=== PATIENT | female | born 1985 | race Hispanic/Latino ===

== ENCOUNTER 2016-09-24 08:32 | Emergency (ER) | payer OTHER ==
[~2016-09-24] VITALS: Ht 154.9 cm; Wt 75.0 kg
[2016-09-24] MEDS ORDERED: ASPI1TAB PO (08:47)
[2016-09-24] MEDS ORDERED: ADAL60TA PO (08:47)
[2016-09-24 09:27] LABS: BASO % 0.1 % (0.0-1.0); EOS % 0.1 % (0.0-3.0); LARGE UNSTAINED CELL # 0.2 K/mm3 (0.0-0.4); LARGE UNSTAINED CELL % 1.1 % (0.0-4.0); LYMPH % 7.1 % (24.0-44.0); MEAN CORPUSCULAR HEMOGLOBIN 29.7 pg (27.0-33.0); MEAN CORPUSCULAR HGB CONC 35.3 g/dl (32.0-36.5); MONO # 0.7 K/mm3 (0.0-0.8); MONO % 5.4 % (0.0-5.0); NEUTROPHILS # 11.8 K/mm3 (1.8-7.7); NEUTROPHILS % 86.3 % (36.0-66.0); PLATELET COUNT, AUTOMATED 208 k/mm3 (150-450); RED CELL DISTRIBUTION WIDTH 13.1 % (11.5-14.5); WHITE BLOOD COUNT 13.6 K/mm3 (4.0-10.0)
[2016-09-24] MEDS ORDERED: NS 1,000 ML IV ONE (09:30)
[2016-09-24 09:57] LABS: ALBUMIN 2.8 GM/DL (3.2-5.2); ALBUMIN/GLOBULIN RATIO 0.58 (1.00-1.93); ALKALINE PHOSPHATASE 76 U/L (45-117); ALT/SGPT 30 U/L (12-78); ANION GAP 10 MEQ/L (8-16); AST/SGOT 21 U/L (15-37); BILIRUBIN,DIRECT 0.4 MG/DL (0.0-0.2); BILIRUBIN,TOTAL 1.4 MG/DL (0.2-1.0); BLOOD UREA NITROGEN 5 MG/DL (7-18); CARBON DIOXIDE LEVEL 21 MEQ/L (21-32); CHLORIDE LEVEL 96 MEQ/L (98-107); CREATININE FOR GFR 0.61 MG/DL (0.55-1.02); GLOMERULAR FILTRATION RATE > 60.0 (>60); GLUCOSE, FASTING 207 MG/DL (70-105); SODIUM LEVEL 127 MEQ/L (136-145); TOTAL PROTEIN 7.6 GM/DL (6.4-8.2)
[2016-09-24] MEDS ORDERED: SODIUM CHLORIDE 0.9% 1000 ML IV ONE (13:15)
--- NOTE | 2016-09-24 13:42 | REP ---
RIGHT LOWER QUADRANT ULTRASOUND: Real-time sonographic evaluation of the right lower quadrant performed. The appendix could not be visualized. No free fluid or fluid collection is seen. The ovary is visualized and appears normal in size and echotexture measuring 3.4 x 2.1 x 2.6 cm. There is blood flow seen in the right ovary with duplex Doppler evaluation, with no torsion, RI 0.33. Living intrauterine twin gestation is noted, heart rate of fetus A 168 beats per minute and heart rate of fetus B 157 beats per minute. IMPRESSION: Appendix could not be visualized. No free fluid. Normal right ovary. Signed by Toribio Chowdary MD 09/24/2016 05:57 P
--- NOTE | 2016-09-24 16:17 | REP ---
MRI ABDOMEN WITHOUT CONTRAST: Multiple sequences are obtained throughout the abdomen to evaluate for possible appendicitis. Imaging is performed in the sagittal, coronal and axial planes. No IV contrast was administered. Twin gestation is seen within the uterus. Ovaries appear normal with no mass. The cecum is displaced superiorly into the subhepatic area near the gallbladder. There is no evidence of appendicitis. There is no definite inflammation seen of the gallbladder. There is no biliary dilatation. No free fluid is seen in the visualized abdomen or pelvis. I see no adenopathy or other significant finding. IMPRESSION: No evidence of appendicitis of free fluid. No acute abnormalities are seen. Signed by Toribio Chowdary MD 09/24/2016 05:59 P
[2016-09-24] MEDS ORDERED: POTASSIUM CHLORIDE 10 MEQ SR TABLET PO ONE (16:45)
[2016-09-24 16:49] VITALS: BP 118/63
[2016-09-24] MEDS ORDERED: ACETAMINOPHEN TAB 650MG DOSE (2X325MG) PO ONE (17:00)
[2016-09-24] MEDS ORDERED: PREN1TAB11 PO (23:02)
[2016-09-25] MEDS ORDERED: MACR100C43 PO ×2 (01:14→13:51)
[2016-09-25] MEDS ORDERED: NIFE30TA66 PO (14:23)
== END 2016-09-24 17:03 | disposition home or self-care (01) ==
LOC: M ED 08:32
DX: O26.892 Other specified pregnancy related conditions, second trimester (principal); R50.9 Fever, unspecified; R11.10 Vomiting, unspecified; Z3A.15 15 weeks gestation of pregnancy

== ENCOUNTER 2016-09-24 22:48 | Emergency (ER) | payer OTHER ==
[~2016-09-24] VITALS: Ht 165.1 cm; Wt 75.0 kg
[~2016-09-24 22:48] MED LIST: ADAL60TA PO; ASPI1TAB PO
[2016-09-24] MEDS ORDERED: PREN1TAB11 PO (23:02)
[2016-09-25] MEDS ORDERED: MACR100C43 PO ×2 (01:14→13:51)
[2016-09-25] MEDS ORDERED: NS 1,000 ML IV ONE (01:15)
[2016-09-25] MEDS ORDERED: NITROFURANTOIN (MACROBID) 100 MG CAP PO ONE (01:15)
[2016-09-25 01:19] VITALS: BP 143/84
[2016-09-25] MEDS ORDERED: NIFE30TA66 PO (14:23)
== END 2016-09-25 02:30 | disposition home or self-care (01) ==
LOC: M ED 22:48
DX: O23.42 Unspecified infection of urinary tract in pregnancy, second trimester (principal); Z3A.15 15 weeks gestation of pregnancy

== ENCOUNTER 2016-09-25 10:14 | Inpatient (IN) | payer OTHER ==
[~2016-09-25] VITALS: Ht 154.9 cm; Wt 70.5 kg
[~2016-09-25 10:14] MED LIST changes: +MACR100C43 PO; +PREN1TAB11 PO
[2016-09-25] MEDS ORDERED: NS 1,000 ML IV SCH (10:21)
[2016-09-25] MEDS ORDERED: cefTRIAXone SOD 2 GM in D5W MINI-BAG PLUS 50 ML IV ONE (10:30)
[2016-09-25] MEDS ORDERED: NS 1,000 ML IV ONE (10:30)
[2016-09-25] MEDS ORDERED: ONDANSETRON 4MG/2ML VIAL (J2405) IV ONE ×2 (10:45→13:30)
[2016-09-25 11:04] LABS: BASO % 0.1 % (0.0-1.0); EOS % 0.1 % (0.0-3.0); LARGE UNSTAINED CELL # 0.1 K/mm3 (0.0-0.4); LARGE UNSTAINED CELL % 0.6 % (0.0-4.0); LYMPH # 0.6 K/mm3 (1.5-6.5); LYMPH % 3.7 % (24.0-44.0); MEAN CORPUSCULAR HEMOGLOBIN 29.5 pg (27.0-33.0); MEAN CORPUSCULAR HGB CONC 34.4 g/dl (32.0-36.5); MEAN CORPUSCULAR VOLUME 85.9 fl (80.0-96.0); MONO # 0.3 K/mm3 (0.0-0.8); MONO % 2.5 % (0.0-5.0); NEUTROPHILS # 11.6 K/mm3 (1.8-7.7); NEUTROPHILS % 92.9 % (36.0-66.0); PLATELET COUNT, AUTOMATED 159 k/mm3 (150-450); RED CELL DISTRIBUTION WIDTH 13.4 % (11.5-14.5); WHITE BLOOD COUNT 12.5 K/mm3 (4.0-10.0)
[2016-09-25 11:20] LABS: ALBUMIN 2.4 GM/DL (3.2-5.2); ALBUMIN/GLOBULIN RATIO 0.49 (1.00-1.93); ALKALINE PHOSPHATASE 85 U/L (45-117); ALT/SGPT 26 U/L (12-78); ANION GAP 10 MEQ/L (8-16); AST/SGOT 19 U/L (15-37); BILIRUBIN,DIRECT 0.5 MG/DL (0.0-0.2); BILIRUBIN,TOTAL 1.4 MG/DL (0.2-1.0); BLOOD UREA NITROGEN 4 MG/DL (7-18); CALCIUM LEVEL 8.5 MG/DL (8.5-10.1); CARBON DIOXIDE LEVEL 23 MEQ/L (21-32); CHLORIDE LEVEL 105 MEQ/L (98-107); CREATININE FOR GFR 0.55 MG/DL (0.55-1.02); GLOMERULAR FILTRATION RATE > 60.0 (>60); GLUCOSE, FASTING 150 MG/DL (70-105); POTASSIUM SERUM 3.3 MEQ/L (3.5-5.1); SODIUM LEVEL 138 MEQ/L (136-145); TOTAL PROTEIN 7.3 GM/DL (6.4-8.2)
--- NOTE | 2016-09-25 12:35 | REP ---
RIGHT ABDOMINAL ULTRASOUND: Real-time sonographic evaluation of the right abdomen performed to evaluate the appendix. Correlation made with prior ultrasound and MRI performed 09/24/2016. Once again the cecum is displaced superiorly toward the right upper quadrant. The appendix appears to be visualized in this region of the abdomen measuring 5 mm with no sonographic evidence of appendicitis. There is no free fluid in this region as well. Gallbladder demonstrates no gallstones. There is no biliary dilatation with the common bile duct measuring 4 mm. In the right lower quadrant where the patient complains of most pain there are prominent uterine and pelvic veins present. The right ovary appears normal in size with no evidence of torsion with duplex Doppler evaluation. IMPRESSION: No sonographic evidence of appendicitis. Gallbladder and right ovary also appear normal. No free fluid is seen. Signed by Toribio Chowdary MD 09/25/2016 03:30 P
[2016-09-25] MEDS ORDERED: ACETAMINOPHEN 325 MG TAB PO SCH (13:00)
--- NOTE | 2016-09-25 13:04 | REP ---
TWIN OB ULTRASOUND: Real-time sonographic evaluation of intrauterine twin gestation is performed, estimated gestational age is 15 weeks 5 days, EDC 03/14/2017. Fetus A: BPD 30 mm = 15 weeks 3 days, 36th percentile HC 113 mm = 15 weeks 4 days, 41st percentile AC 105 mm = 16 weeks 3 days, 69th percentile Femur length 19 mm = 15 weeks 5 days, 47th percentile HC/AC ratio 1.08 slightly below normal range of 1.10 to 1.29. Estimated weight 142 grams at the 53rd percentile. No heart motion is detected for fetus A, compatible with intrauterine demise. Fetus B: BPD 30 mm = 15 weeks 4 days, 44th percentile HC 115 mm = 15 weeks 4 days, 45th percentile AC 101 mm = 16 weeks 1 day, 60th percentile Femur length 16 mm = 14 weeks 5 days, 17th percentile HC/AC ratio 1.14 within normal range. Estimated weight 125 grams, 31st percentile. heart rate 163 beats per minute. This is a diamniotic dichorionic twin gestation. Placentas are anterior and grade 0 with no previa or abruption. Cervix appears somewhat shortened approximately 2 cm in length. Signed by Toribio Chowdary MD 09/25/2016 03:31 P
[2016-09-25] MEDS ORDERED: MORPHINE 2 MG/ML 1ML SYRINGE IV ONE (13:30)
[2016-09-25] MEDS ORDERED: MACR100C43 PO (13:51)
[2016-09-25] MEDS ORDERED: LACTATED RINGER'S 1000 ML IV STA (13:57)
[2016-09-25] MEDS ORDERED: MORPHINE 2 MG/ML 1ML SYRINGE IV PRN (14:00)
[2016-09-25] MEDS ORDERED: ONDANSETRON 4MG/2ML VIAL (J2405) IV PRN ×2 (14:00→20:45)
[2016-09-25] MEDS ORDERED: DOCUSATE SODIUM 100 MG CAP PO PRN (14:00)
[2016-09-25] MEDS: LR 1,000 ML IV SCH ×2 (14:15→17:26)
[2016-09-25] MEDS ORDERED: NIFE30TA66 PO (14:23)
[2016-09-25 14:46] VITALS: BP 132/83
[2016-09-25] MEDS: ACETAMINOPHEN 500 MG TAB PO PRN (15:29)
[2016-09-25] MEDS ORDERED: miSOPROStol 200 MCG TAB (S0191) As Ordered ONE ×2 (15:56→18:51)
[2016-09-25] MEDS ORDERED: miSOPROStol 200 MCG TAB (S0191) PO ONE (16:15)
[2016-09-25 17:04] VITALS: BP 137/82
[2016-09-25 17:20] VITALS: BP 134/83
[2016-09-25 17:36] VITALS: BP 132/82
[2016-09-25] MEDS ORDERED: SILVER NITRATE APPLICATOR As Ordered ONE (18:22)
[2016-09-25] MEDS ORDERED: LIDOCAINE 1% SDV INJ 30 ML VIAL As Ordered ONE (18:22)
[2016-09-25] MEDS ORDERED: fentaNYL 100 MCG/2 ML INJECTION (J3010) As Ordered ONE ×3 (18:34→19:10)
[2016-09-25] MEDS ORDERED: MIDAZOLAM INJ 2 MG/2 ML VIAL (J2250) As Ordered ONE (18:34)
[2016-09-25] MEDS ORDERED: PROPOFOL 200 MG/20 ML VIAL As Ordered ONE (18:34)
[2016-09-25] MEDS ORDERED: LIDOCAINE 2% INJ 100 MG/5 ML SDV (FOR ANES.) As Ordered ONE (18:34)
[2016-09-25] MEDS ORDERED: ONDANSETRON 4MG/2ML VIAL (J2405) As Ordered ONE (18:46)
[2016-09-25] MEDS ORDERED: miSOPROStol 200 MCG TAB (S0191) PR ONE (19:00)
[2016-09-25] MEDS ORDERED: PHENYLephrine HCL 500 MCG/5 ML (100MCG/ML) SYRINGE (J2370) As Ordered ONE (19:22)
[2016-09-25 20:28] LABS: MEAN CORPUSCULAR HEMOGLOBIN 30.1 pg (27.0-33.0); MEAN CORPUSCULAR HGB CONC 34.5 g/dl (32.0-36.5); MEAN CORPUSCULAR VOLUME 87.1 fl (80.0-96.0); RED CELL DISTRIBUTION WIDTH 13.6 % (11.5-14.5); WHITE BLOOD COUNT 15.3 K/mm3 (4.0-10.0)
[2016-09-25] MEDS ORDERED: PROMETHAZINE 25 MG TAB PO PRN (20:30)
[2016-09-25] MEDS ORDERED: RHOGAM 300 MCG (1500 IU) INJ (J2790) IM SCH (20:30)
[2016-09-25] MEDS ORDERED: MOM 30ML SUSPENSION UDC PO PRN (20:30)
[2016-09-25] MEDS ORDERED: MEASLES,MUMPS,RUBELLA VACCINE INJ (MMR-II) (90707) SC SCH (20:30)
[2016-09-25] MEDS ORDERED: LR 1,000 ML IV SCH (20:45)
[2016-09-25] MEDS ORDERED: fentaNYL 100 MCG/2 ML INJECTION (J3010) IV PRN (20:45)
[2016-09-25] MEDS ORDERED: GENTAMICIN SULF INJ 80MG/2ML VIAL (J1580) IP ONE (21:15)
[2016-09-25 21:23] LABS: MEAN CORPUSCULAR HEMOGLOBIN 29.9 pg (27.0-33.0); MEAN CORPUSCULAR HGB CONC 34.1 g/dl (32.0-36.5); MEAN CORPUSCULAR VOLUME 87.6 fl (80.0-96.0); RED CELL DISTRIBUTION WIDTH 14.6 % (11.5-14.5); WHITE BLOOD COUNT 15.6 K/mm3 (4.0-10.0)
[2016-09-25 21:50] VITALS: BP 122/77
[2016-09-25] MEDS: AMPICILLIN SOD 2 GM in D5W MINI-BAG PLUS 100 ML IV SCH (22:34)
[2016-09-25] MEDS: CLINDAMYCIN 900 MG in APPROPRIATE DILUENT 1 EA IV SCH (23:29)
[2016-09-25] MEDS: GENTAMICIN 350 MG in D5W 100 ML IV SCH (23:29)
[2016-09-26 02:00] VITALS: BP 106/64
[2016-09-26] MEDS: AMPICILLIN SOD 2 GM in D5W MINI-BAG PLUS 100 ML IV SCH ×4 (04:19→22:56)
[2016-09-26] MEDS: LR 1,000 ML IV SCH ×3 (04:27→22:57)
[2016-09-26 06:00] VITALS: BP 113/60
[2016-09-26 06:20] LABS: MEAN CORPUSCULAR HEMOGLOBIN 29.6 pg (27.0-33.0); MEAN CORPUSCULAR HGB CONC 34.4 g/dl (32.0-36.5); MEAN CORPUSCULAR VOLUME 86.2 fl (80.0-96.0); RED CELL DISTRIBUTION WIDTH 14.3 % (11.5-14.5); WHITE BLOOD COUNT 12.9 K/mm3 (4.0-10.0)
[2016-09-26] MEDS: CLINDAMYCIN 900 MG in APPROPRIATE DILUENT 1 EA IV SCH ×3 (06:34→22:57)
[2016-09-26] MEDS ORDERED: cefTRIAXone SOD 2 GM in D5W MINI-BAG PLUS 50 ML IV SCH (09:00)
[2016-09-26] MEDS: FERROUS SULFATE 325MG TAB PO SCH ×2 (09:27→20:08)
[2016-09-26] MEDS: PRENATAL VITAMINS CHEWABLE TABLET PO SCH (09:27)
[2016-09-26 10:38] VITALS: BP 113/64
[2016-09-26 14:35] VITALS: BP 119/61
[2016-09-26] MEDS: ACETAMINOPHEN 500 MG TAB PO PRN (16:15)
[2016-09-26 18:10] VITALS: BP 120/65
--- NOTE | 2016-09-26 21:26 | DN ---
DATE OF SERVICE: 09/25/2016 TIME: 183 Called to patient's room by nursing with concern for continued bleeding. This was approximately 1440. Upon examination, palpated known demised twin A within the vaginal vault. Within the next 30-45 seconds, previous demised twin A delivered at 1450. Two clamps were placed on cord. Father of the twins cut the umbilical cord. was noted to again have been demised, was wrapped in a cloth and handed to the family. Second clamp was placed on twin A's placenta. Careful examination of the vagina and cervix demonstrated no clot, no active bleeding, cervix dilated less than 1 cm. TUAS at this time showed twin B to be viable with breech presentation with FCA (150)/FM with LVP >2x2cm. Recalled to room shortly thereafter within 15 minutes for passage of clot. Also noted about this time an oral temperature of 101.7. At 1530 noted another vaginal clot. 1533 demonstrated transabdominal ultrasound with twin B much lower in the lower uterine segment into the cervix still with good heart rate. Cervix still noted to be approximately 1.5 cm in length transabdominal view. 1537, 2 mg of morphine asked for to help with increasing contractions and discomfort. At 1540, reexamination vaginally noted twin B to be delivering through the cervix into the vagina with delivery noted at 1546. Approximately 20-30 seconds of agonal sort of noted breathing within the 15-week-old then noted no further breathing with demise shortly thereafter. One clamp placed, clamped times two, the umbilical cord cut by the patient. One clamp now noted for placenta B and umbilical cord, two clamps noted for placenta A and umbilical cord. Discussed with patient further plan with management via misoprostol for help delivery of the placentas. Given 200 mcg by mouth at 1557. Approximately 4:10 noted a large clot passed. A little bit after five, Dr. Lebron was notified of some continued bleeding noted in the pad. At approximately 1528 or 1529, Dr. Lebron performed a bedside examination and noted cords were easily avulsed from placentas and Dr. Lebron now discussed with patient that recommended dilation and curettage (D and C) for continued management for delivery of the placenta with continued bleeding. Placentas still noted to be intrauterine. At about 8 o'clock I presented to room. Transabdominal ultrasound showed placentas in the lower aspect of the uterus near the cervix. Fundal endometrial stripe approximately 1.2 cm. Feliciano was placed. Patient was counseled extensively on risks, benefits, alternatives, indications to a suction D and C and consent was obtained. A Feliciano catheter was placed without complication and patient called to the operating room (OR) for performing D and C. Benito Nixon OB-TRANSPORTATION TECHNICIAN TRACE
[2016-09-26 22:00] VITALS: BP 108/61
[2016-09-27] MEDS: GENTAMICIN 350 MG in D5W 100 ML IV SCH ×2 (00:09→23:53)
[2016-09-27] MEDS: AMPICILLIN SOD 2 GM in D5W MINI-BAG PLUS 100 ML IV SCH ×4 (04:07→22:06)
[2016-09-27 06:00] VITALS: BP 118/73
[2016-09-27] MEDS: LR 1,000 ML IV SCH ×3 (06:15→22:15)
[2016-09-27 06:30] LABS: MEAN CORPUSCULAR HEMOGLOBIN 29.2 pg (27.0-33.0); MEAN CORPUSCULAR HGB CONC 34.1 g/dl (32.0-36.5); MEAN CORPUSCULAR VOLUME 85.5 fl (80.0-96.0); RED CELL DISTRIBUTION WIDTH 14.9 % (11.5-14.5); WHITE BLOOD COUNT 8.5 K/mm3 (4.0-10.0)
[2016-09-27] MEDS: CLINDAMYCIN 900 MG in APPROPRIATE DILUENT 1 EA IV SCH ×2 (06:44→06:46)
[2016-09-27] MEDS: FERROUS SULFATE 325MG TAB PO SCH ×2 (09:04→22:06)
[2016-09-27] MEDS: PRENATAL VITAMINS CHEWABLE TABLET PO SCH (09:04)
--- NOTE | 2016-09-27 09:57 | RO ---
DATE OF PROCEDURE: 09/25/2016 PREOPERATIVE DIAGNOSES: 1. Clary twin with bilateral delivery of fetuses. 2. Bacteremia, gram negative rods. 3. Avulsed umbilical cord. 4. Vaginal bleeding, estimated blood loss in delivery room 600 mL. POSTOPERATIVE DIAGNOSES: 1. Clary twin with bilateral delivery of fetuses. 2. Bacteremia, gram negative rods. 3. Avulsed umbilical cord. 4. Vaginal bleeding, estimated blood loss in delivery room 600 mL. PROCEDURE: Suction dilatation and curettage. SURGEON: Dennis Nixon MD LIVING COACH: None ANESTHESIA: Dago Vail CRNA , general anesthesia. IV FLUIDS: 2 liters. URINE OUTPUT: 150 mL. ESTIMATED BLOOD LOSS: 900 mL. DESCRIPTION OF PROCEDURE: The risks, benefits, alternatives and indications were reviewed with the patient and informed consent was obtained. Patient was taken to the operating room where general anesthesia was obtained without difficulty. She was prepped and draped in a high lithotomy position. A Feliciano catheter had previously been placed in the delivery room. After a time out was performed, a sterile speculum was placed in the patient's vagina and the cervix was visualized. A large amount of clot/tissue noted at cervical os, filling vaginal vault. This was removed without incident and handed off to the waiting case technician. The cervix was noted to be dilated without need for further dilation. A 14 mm curved suction curette was advanced to the uterine fundus measuring approximately 12 cm. Once this was advanced to the fundus, it was activated to 60 mmHg in a 360 degree fashion a suction catheter was activated and blood and tissue were removed. Multiple passes of both suction catheter as well as a large banjo curette were performed until a good uterine cry noted. No active profuse bleeding noted any time. Passage again of large amount of tissue as well as blood noted. At the conclusion of this, a transabdominal ultrasound was performed with the assistance of nursing with a thin endometrial stripe of roughly 1.3 cm. No active bleeding was noted. A final pass of the suction catheter as well as curette demonstrated no further tissue and again, a good uterine cry, no active bleeding. The single tooth tenaculum was removed that had been previously placed in a routine fashion. No active bleeding was noticed from the single tooth tenaculum site or the cervical os. The cervical os was noted to be dilated approximately 1-2 cm. Sterile speculum was removed. Feliciano catheter was maintained. A vaginal sweep noted no retained objects or clots noted. The patient remained afebrile during the entire case. Hemoglobin performed by anesthesia near the conclusion of the case demonstrated a hemoglobin of 6. This patient had been previously typed and crossed for 2 units of packed red blood cells due to concern for possible need of transfusion. A decision was made to proceed with transfusion. The blood bank was notified of planned 2 units of packed red blood cells. Patient was taken to the postanesthesia care unit (PACU) in stable condition. Received 2gm of Rocephin earlier in day for known bacteremia. Benito Nixon OB-OPERATING SYSTEM PROGRAMMER TRACE
[2016-09-27 13:50] LABS: MEAN CORPUSCULAR HEMOGLOBIN 30.4 pg (27.0-33.0); MEAN CORPUSCULAR HGB CONC 34.5 g/dl (32.0-36.5); MEAN CORPUSCULAR VOLUME 88.1 fl (80.0-96.0); WHITE BLOOD COUNT 10.2 K/mm3 (4.0-10.0)
[2016-09-27 14:00] VITALS: BP 119/74
--- NOTE | 2016-09-27 14:40 | IPN ---
DATE: 09/27/2016 This lady is a 30-year-old 3, para 1 who at 15 and one weeks had a di/di twin gestation, had been leaking fluid, lower abdominal pain and cramps. She eventually spontaneously delivered twins and required suction dilation and curettage after avulsion of the umbilical cords and vaginal bleeding. She had a large amount of blood loss at 1500 mL and she received two units of packed cells in the postanesthesia care unit (PACU) prior to maternity. She also had septicemia and bacteremia with gram-negative rods which have now turned out to be Escherichia (E) coli and are sensitive to gentamicin and ampicillin. She had been placed on four antibiotics, clindamycin, gentamicin, Rocephin and ampicillin, and now we have localized down that the E-coli is sensitive to gentamicin and ampicillin. Post transfusion, her complete blood count (CBC) is now 5.9 with a hematocrit of 17.2 and platelets of 136. We discussed with her the risks and benefits of blood transfusion and she had already had previously two units of blood and therefore accepted another two units of blood packed cells, after which we will repeat her CBC several hours later. Athough, at present, she is not symptomatic. She may be on the way home symptomatic and therefore she understands the risks and benefits of blood transfusion. The other issue is her temperature which her last elevated temperature was at 2150 on 09/25/2016 and she did not have a temperature since. Her vital signs this morning, her temperature is 98.1, pulse is 99, respirations are 16, and blood pressure is 108/61. Our plan of management is to reduce down the total amount of antibiotics that she has encountered, do a peak trough for her gentamicin now that we have a positive E-coli and sensitivity identification, give her two units of blood and probable discharge for tomorrow. The other issue was contraception. She definitely does not want to have anymore children, but her is resistant to having a vasectomy and she says she is not interested in having another operation as she has had a pretty traumatic experience with this delivery of the twins at 15 weeks and one day. I recommended that they review the process at her two-week interval checkup and we can discuss options with her at that time. In summary, we have a 15 week and one day di/di twins with septicemia delivered with avulsion of the cord and massive transfusion required. The patient is on recovery.
[2016-09-27 18:00] VITALS: BP 131/83
[2016-09-28] MEDS: AMPICILLIN SOD 2 GM in D5W MINI-BAG PLUS 100 ML IV SCH ×4 (04:09→23:21)
[2016-09-28 05:46] VITALS: BP 117/82
[2016-09-28 06:17] LABS: MEAN CORPUSCULAR HEMOGLOBIN 30.3 pg (27.0-33.0); MEAN CORPUSCULAR HGB CONC 34.5 g/dl (32.0-36.5); MEAN CORPUSCULAR VOLUME 87.9 fl (80.0-96.0); RED CELL DISTRIBUTION WIDTH 15.1 % (11.5-14.5); WHITE BLOOD COUNT 11.9 K/mm3 (4.0-10.0)
[2016-09-28] MEDS ORDERED: PERCOCET 5MG/325MG TAB PO PRN (08:30)
[2016-09-28] MEDS: FERROUS SULFATE 325MG TAB PO SCH ×2 (09:00→22:00)
[2016-09-28] MEDS: PRENATAL VITAMINS CHEWABLE TABLET PO SCH (09:00)
[2016-09-28 18:00] VITALS: BP 146/77
[2016-09-29] MEDS: GENTAMICIN 350 MG in D5W 100 ML IV SCH (00:16)
[2016-09-29] MEDS: AMPICILLIN SOD 2 GM in D5W MINI-BAG PLUS 100 ML IV SCH (04:03)
[2016-09-29 06:10] VITALS: BP 122/78
[2016-09-29] MEDS: FERROUS SULFATE 325MG TAB PO SCH (08:19)
[2016-09-29] MEDS: PRENATAL VITAMINS CHEWABLE TABLET PO SCH (08:19)
[2016-09-29 08:31] LABS: MEAN CORPUSCULAR HEMOGLOBIN 30.5 pg (27.0-33.0); MEAN CORPUSCULAR HGB CONC 34.2 g/dl (32.0-36.5); MEAN CORPUSCULAR VOLUME 89.3 fl (80.0-96.0); RED CELL DISTRIBUTION WIDTH 15.5 % (11.5-14.5); WHITE BLOOD COUNT 11.2 K/mm3 (4.0-10.0)
[2016-09-29] MEDS ORDERED: BACTRIM 160MG/800MG DS TAB PO SCH (09:00)
[2016-09-29] MEDS ORDERED: COLA100C5 PO (11:22)
--- NOTE | 2016-09-30 07:46 | DSES ---
DATE OF ADMISSION: 09/25/2016 DATE OF DISCHARGE: 09/29/2016 This lady is a 3, para 1, who came in at 15 weeks and 1 day septic and had spontaneous delivery of stillbirth twins at 15 weeks 1 day. They were di-di twins. Unfortunately, placentas required manual removal and the patient had a considerable bleed postoperatively requiring 6 units of packed cells to stabilize her hemoglobin at 9.3 and hematocrit 27.2. Her risk factors is she had anemia, septicemia, resistant E-coli, blood transfusion and manual removal of placentas. On discharge, her blood pressure was 122/78, respirations 18, pulse 60, temperature 98.6. Her hemoglobin was 9.3 and hematocrit 27.2. The rest of the examination was unremarkable. She is normocephalic, atraumatic. Neck full range of motion. Pupils equal and reactive to light. Distal pulses symmetric. No evidence of deep vein thrombosis (DVT), pulmonary embolus (PE) or superficial phlebitis. Lungs are clear bilaterally at bases. No wheezes or rhonchi. No costovertebral angle (CVA) tenderness. Uterus two below. Lochia is moderate. Nongravid uterus. She is afebrile. No irritational signs, endometritis. She has no rashes, lesions or pruritus. No arthralgia or myalgia. No complaints of cough, wheeze, shortness of breath, or dyspnea on exertion. No chest pain Not bleeding. Neuro complete. No incontinency, urgency or frequency. No nausea, vomiting, diarrhea or constipation. No diabetic issues. 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 She does not smoke, drink or abuse drugs. She has no domestic violence. She is to a soldier and she has a good support system. In summary, we have a spontaneous of di-di twins at 15 weeks secondary to septicemia. The patient was dispensed meds and she is to be on prophylactic antibiotics for 7-10 days time. She has a followup in the office in two weeks' time.
== END 2016-09-29 12:30 | disposition home or self-care (01) | DRG 767 ==
LOC: M ED 10:14 → INTOOBSV 13:57 → M ED INP 13:57 → OBSVTOIN 13:58 → M OBS 14:26
PROVIDERS: ADMIT Student in an Organized Health Care Education/Training Program; ATTEND Student in an Organized Health Care Education/Training Program
PROC: 10E0XZZ Delivery of Products of Conception, External Approach (ICD-10-PCS; 2016-09-25)
PROC: 30233N1 Transfusion of Nonautologous Red Blood Cells into Peripheral Vein, Percutaneous Approach (ICD-10-PCS; 2016-09-25)
PROC: 10D17ZZ Extraction of Products of Conception, Retained, Via Natural or Artificial Opening (ICD-10-PCS; principal; 2016-09-25 18:25)
DX: O98.82 Other maternal infectious and parasitic diseases complicating childbirth (principal); O60.12X1 Preterm labor second trimester with preterm delivery second trimester, fetus 1; O60.12X2 Preterm labor second trimester with preterm delivery second trimester, fetus 2; R78.81 Bacteremia; O10.012 Pre-existing essential hypertension complicating pregnancy, second trimester; O36.4XX1 Maternal care for intrauterine death, fetus 1; O36.4XX2 Maternal care for intrauterine death, fetus 2; O72.0 Third-stage hemorrhage; O28.0 Abnormal hematological finding on antenatal screening of mother; Z3A.15 15 weeks gestation of pregnancy; B96.20 Unspecified Escherichia coli [E. coli] as the cause of diseases classified elsewhere; Z37.4 Twins, both stillborn; D64.9 Anemia, unspecified; O30.042 Twin pregnancy, dichorionic/diamniotic, second trimester; Z79.899 Other long term (current) drug therapy; O42.012 Preterm premature rupture of membranes, onset of labor within 24 hours of rupture, second trimester; O69.89X1 Labor and delivery complicated by other cord complications, fetus 1; O69.89X2 Labor and delivery complicated by other cord complications, fetus 2; O32.1XX2 Maternal care for breech presentation, fetus 2; O99.02 Anemia complicating childbirth; O43.892 Other placental disorders, second trimester

== ENCOUNTER → 2016-10-07 | Outpatient (CLI) | payer OTHER ==
[~2016-10-07] MED LIST changes: +COLA100C5 PO; +NIFE30TA66 PO
--- NOTE | 2016-10-07 15:11 | REP ---
PELVIC ULTRASOUND: Real-time sonographic evaluation of the pelvis performed utilizing transabdominal and endovaginal technique. Bladder measures 5.6 x 6.3 x 7.1 cm. The uterus measures 9.1 x 5.4 x 7.3 cm. Endometrium measures 14 mm in thickness. A small amount of fluid is seen in the lower uterine segment and cervical canal. Ovaries are normal in size and echotexture, the right ovary measuring 2.9 x 2.2 x 2.4 cm and left ovary 2.3 x 2.3 x 3.1 cm. There is no adnexal mass or free fluid. There is no evidence of ovarian torsion, with blood flow seen in each ovary with duplex Doppler evaluation. IMPRESSION: Endometrial thickness 14 mm. Mild complex fluid seen in the lower uterine segment and cervical canal. Signed by Toribio Chowdary MD 10/08/2016 01:24 P
== END ==
LOC: M RAD 11:32
PROVIDERS: ATTEND Student in an Organized Health Care Education/Training Program
DX: Z87.59 Personal history of other complications of pregnancy, childbirth and the puerperium (principal)